=== PATIENT | female | born 1990 | race American Indian/Alaskan Native ===

== ENCOUNTER 2017-03-21 20:18 | Emergency (ER) | payer SELFPAY ==
[2017-03-21 21:02] VITALS: BP 101/56
== END 2017-03-22 04:20 | disposition left against medical advice (07) ==
LOC: ED 20:18
DX: J02.9 Acute pharyngitis, unspecified (principal); R07.0 Pain in throat; F17.200 Nicotine dependence, unspecified, uncomplicated; F12.90 Cannabis use, unspecified, uncomplicated; Z53.21 Procedure and treatment not carried out due to patient leaving prior to being seen by health care provider
CPT/HCPCS: 87116; 87430